=== PATIENT | female | born 1945 | race Caucasian/White ===

== ENCOUNTER 2016-09-14 12:20 | Outpatient (CLI) | payer OTHER | END 2016-09-14 19:15 | disposition home or self-care (01) | LOC: SRD 12:20 | PROVIDERS: ATTEND Internal Medicine | DX: Z12.31 Encounter for screening mammogram for malignant neoplasm of breast (principal) | CPT/HCPCS: G0202 ==

== ENCOUNTER 2016-10-12 13:08 | Outpatient (CLI) | payer OTHER | END 2016-10-12 18:20 | disposition home or self-care (01) | LOC: SMA 13:08 | PROVIDERS: ATTEND Internal Medicine | DX: R92.8 Other abnormal and inconclusive findings on diagnostic imaging of breast (principal) | CPT/HCPCS: 76642; G0206 ==

== ENCOUNTER 2016-12-07 10:47 | Outpatient (CLI) | payer OTHER | END 2016-12-07 19:31 | disposition home or self-care (01) | LOC: SUS 10:47 | PROVIDERS: ATTEND Internal Medicine | DX: N60.01 Solitary cyst of right breast (principal) | CPT/HCPCS: 76641 ==

== ENCOUNTER 2017-01-15 09:06 | Outpatient (CLI) | payer OTHER | END 2017-01-15 21:47 | disposition home or self-care (01) | LOC: SRD 09:06 | PROVIDERS: ATTEND Internal Medicine | DX: Z01.818 Encounter for other preprocedural examination (principal) | CPT/HCPCS: 71020-TC ==